=== PATIENT | female | born 1975 | race Caucasian/White ===

== ENCOUNTER 2021-05-26 17:01 | Emergency (ER) | payer OTHER ==
[2021-05-26 17:37] VITALS: TEMP 99.4; BMI 23.0
[2021-05-26] MEDS ORDERED: CASIRIVIMAB/IMDEVIMAB 10 ML in SODIUM CHLORIDE 100 ML IVPB ONE (17:46)
[2021-05-26 18:27] LABS: HEMATOCRIT 39.2 % (32.4-45.2); HEMOGLOBIN 13.5 GM/dL (10.7-15.3); MCH 31.5 pg (25.7-33.7); MCHC 34.4 g/dl (32.0-36.0); MEAN CELL VOLUME 91.4 fl (80-96); MEAN PLT VOLUME 9.4 fl (7.5-11.1); PLATELET COUNT 161 10^3/uL (134-434); RBC 4.29 M/mm3 (3.60-5.2); WHITE BLOOD COUNT 4.3 K/mm3 (4.0-10.0)
[2021-05-26 18:58] LABS: BLOOD UREA NITROGEN 5.8 mg/dL (7-18); CALCIUM 9.2 mg/dL (8.5-10.1)
[2021-05-26 19:01] LABS: CREATININE 0.9 mg/dL (0.55-1.3)
[2021-05-26 19:03] LABS: BILIRUBIN,TOTAL 0.5 mg/dL (0.2-1)
[2021-05-26 20:38] VITALS: BP 132/66; PULSE 95
== END 2021-05-26 20:38 | disposition home or self-care (01) ==
LOC: JER 17:01
DX: U07.1 COVID-19 (principal)
CPT/HCPCS: 36415; 80053; 85027; 99284-25; Q0240